=== PATIENT | male | born 1985 | race Caucasian/White ===

== ENCOUNTER 2018-11-03 11:32 | Emergency (ER) | payer SELFPAY ==
[~2018-11-03] VITALS: Ht 172.7 cm; Wt 77.1 kg
[2018-11-03] MEDS ORDERED: IV NORMAL SALINE 1000ML BAG 1,000 ML IV ONE ×2 (12:00→15:30)
[2018-11-03] MEDS ORDERED: NITROGLYCERIN SUBLINGUAL 0.4 MG BOTTLE OF 25. SL PRN (12:00)
[2018-11-03 12:11] LABS: BASO # 0.1 x10^3/uL (0.0-0.2); BASO % 1 % (0-3); EOS % 0 % (0-3); HEMOGLOBIN 12.7 g/dL (13.0-17.5); LYMPH # 2.2 x10^3/uL (1.0-4.8); LYMPH % 25 % (24-48); MEAN CORPUSCULAR HEMOGLOBIN 27 pg (25-35); MEAN CORPUSCULAR HGB CONC 34 g/dL (31-37); MEAN CORPUSCULAR VOLUME 81 fL (79-100); MONO # 0.7 x10^3/uL (0.0-1.1); MONO % 9 % (0-9); NEUT # 5.5 x10^3/uL (1.8-7.7); NEUT % 65 % (31-73); PLATELET COUNT 338 x10^3/uL (140-400); RED BLOOD COUNT 4.71 x10^6/uL (4.30-5.70); RED CELL DISTRIBUTION WIDTH 15.6 % (11.5-14.5); WHITE BLOOD COUNT 8.5 x10^3/uL (4.0-11.0)
[2018-11-03 12:19] LABS: CALCIUM 9.7 mg/dL (8.5-10.1); POTASSIUM 3.6 mmol/L (3.5-5.1)
[2018-11-03 12:24] LABS: PROTHROMBIN TIME PATIENT 12.1 SEC (11.7-14.0)
[2018-11-03 12:26] LABS: ALBUMIN 3.8 g/dL (3.4-5.0); ALBUMIN/GLOBULIN RATIO 1.1 (1.0-1.7); MAGNESIUM 1.7 mg/dL (1.8-2.4); TOTAL BILIRUBIN 0.2 mg/dL (0.2-1.0); TOTAL PROTEIN 7.4 g/dL (6.4-8.2)
--- NOTE | 2018-11-03 12:43 | EKG ---
[facility] [address] [place] [address] Test Date: 2018-11-03 Test Time: 11:36:51 Pat Name: CORINNE ADAMS Department: Room: Gender: M [employer]visor [employer]: : 1985 Requested By: ADAN JIANG Order Number: [id number] Reading MD: Measurements Intervals [place] Rate: 118 P: 66 IL: 168 QRS: 77 QRSD: 88 T: 42 QT: 306 QTc: 431 Interpretive Statements SINUS TACHYCARDIA OTHERWISE NORMAL ECG RI6.01 No previous ECG available for comparison
--- NOTE | 2018-11-03 12:48 | RAD ---
PORTABLE CHEST 1V History: Chest pain. Comparison: None. Findings: No consolidation or pleural effusion. Normal heart size. Postop changes proximal clavicle resection with surgical clips overlying the right mid chest. Impression: 1. No acute cardiopulmonary process. Electronically signed by: Omid Macias DO (11/03/2018 12:45 PM) [id number]
[2018-11-03 12:53] LABS: D-DIMER 0.51 ug/mlFEU (0.00-0.50)
[2018-11-03 13:35] LABS: AMPHETAMINE/METHAMPHETAMINE POS (NEG); BARBITURATES NEG (NEG); BENZODIAZEPINES NEG (NEG); CANNABINOIDS NEG (NEG); COCAINE NEG (NEG); METHADONE NEG (NEG); OPIATES NEG (NEG); PHENCYCLIDINE NEG (NEG)
--- NOTE | 2018-11-03 13:42 | PHYS DOC ---
Past Medical History Past Medical History: Anxiety, Other Additional Past Medical Histor: PE,ENDOCARDITIS,PANIC DISORDER Additional Past Surgical Histo: RIGHT SHOULDER,STERNUM R/T OSTEOMYLITIS Alcohol Use: Occasionally Drug Use: Methadone Adult General Chief Complaint Chief Complaint: CHEST PAIN HPI HPI Patient is a 33 year old male who presents to the ER via EMS with complaints of chest pain, dizziness, and near syncope for the last hour. He states he was outside painting when the sx started. Pt reports that he last used IV methamphetamine at 0400 this morning. He currently rates his pain a 7/10 on the pain scale, he denies any alleviating factors. Pt was given 324 mg of aspirin by EMS prior to arrival. Review of Systems Review of Systems Constitutional: Denies fever or chills [] Eyes: Denies change in visual acuity, redness, or eye pain [] HENT: Denies nasal congestion or sore throat [] Respiratory: Denies cough or shortness of breath [] Cardiovascular: No additional information not addressed in HPI [] GI: Denies abdominal pain, nausea, vomiting, or diarrhea [] : Denies dysuria or hematuria [] Musculoskeletal: Denies back pain or joint pain [] Integument: Denies rash or skin lesions; reports diaphoresis [] Neurologic: Denies headache or focal weakness; see HPI Endocrine: Denies polyuria or polydipsia [] Complete systems were reviewed and found to be within normal limits, except as documented in this note. Current Medications Current Medications Current Medications Medications (Trade) Dose Ordered Sig/Tanja Start Time Stop Time Status Last Admin Dose Admin Iohexol (Omnipaque 350 Mg/ml) 90 ml 1X ONCE 11/03/18 14:00 11/03/18 14:01 DC Lorazepam (Ativan Inj) 1 mg 1X ONCE 11/03/18 15:30 11/03/18 15:31 DC Nitroglycerin (Nitrostat) 0.4 mg PRN Q5MIN PRN 11/03/18 12:00 11/03/18 15:03 DC 11/03/18 12:15 0.4 MG Sodium Chloride 1,000 ml @ 1,000 mls/hr 1X ONCE 11/03/18 15:30 11/03/18 16:29 DC Allergies Allergies Allergies Coded Allergies Type Severity Reaction Last Updated Verified Sulfa (Sulfonamide Antibiotics) Allergy Unknown 11/03/18 Yes Physical Exam Physical Exam Constitutional: Well developed, well nourished, anxious, non-toxic appearance. [] HENT: Normocephalic, atraumatic, bilateral external ears normal, oropharynx moist, no oral exudates, nose normal. [] Eyes: PERRLA, EOMI, conjunctiva normal, no discharge. [] Neck: Normal range of motion, no tenderness, supple, no stridor. [] Cardiovascular:Heart rate regular tachycardic rhythm, no murmur [] Lungs & Thorax: Bilateral breath sounds clear to auscultation [] Abdomen: Bowel sounds normal, soft, no tenderness, no masses, no pulsatile masses. [] Skin: Warm, diaphoretic, no erythema, no rash. [] Back: No tenderness Extremities: No tenderness, no cyanosis, no clubbing, ROM intact, no edema. [] Neurologic: Alert and oriented X 3, no focal deficits noted. [] Psychologic: Affect normal, judgement normal, mood anxious Current Patient Data Vital Signs Vital Signs Date Time Temp Pulse Resp B/P (MAP) Pulse Ox O2 Delivery O2 Flow Rate FiO2 11/03/18 14:00 102 147/77 (100) 100 Room Air 11/03/18 11:40 98.4 22 98.4 Lab Values Laboratory Tests Test 11/03/18 12:00 11/03/18 13:15 White Blood Count 8.5 x10^3/uL (4.0-11.0) Red Blood Count 4.71 x10^6/uL (4.30-5.70) Hemoglobin 12.7 g/dL (13.0-17.5) L Hematocrit 38.0 % (39.0-53.0) L Mean Corpuscular Volume 81 fL (79-100) Mean Corpuscular Hemoglobin 27 pg (25-35) Mean Corpuscular Hemoglobin Concent 34 g/dL (31-37) Red Cell Distribution Width 15.6 % (11.5-14.5) H Platelet Count 338 x10^3/uL (140-400) Neutrophils (%) (Auto) 65 % (31-73) Lymphocytes (%) (Auto) 25 % (24-48) Monocytes (%) (Auto) 9 % (0-9) Eosinophils (%) (Auto) 0 % (0-3) Basophils (%) (Auto) 1 % (0-3) Neutrophils # (Auto) 5.5 x10^3/uL (1.8-7.7) Lymphocytes # (Auto) 2.2 x10^3/uL (1.0-4.8) Monocytes # (Auto) 0.7 x10^3/uL (0.0-1.1) Eosinophils # (Auto) 0.0 x10^3/uL (0.0-0.7) Basophils # (Auto) 0.1 x10^3/uL (0.0-0.2) Prothrombin Time 12.1 SEC (11.7-14.0) Prothrombin Time INR 0.9 (0.8-1.1) Activated Partial Thromboplast Time 23 SEC (24-38) L D-Dimer (Areli) 0.51 ug/mlFEU (0.00-0.50) H Sodium Level 136 mmol/L (136-145) Potassium Level 3.6 mmol/L (3.5-5.1) Chloride Level 99 mmol/L (98-107) Carbon Dioxide Level 23 mmol/L (21-32) Anion Gap 14 (6-14) Blood Urea Nitrogen 17 mg/dL (8-26) Creatinine 1.0 mg/dL (0.7-1.3) Estimated GFR (Cockcroft-Gault) 85.0 BUN/Creatinine Ratio 17 (6-20) Glucose Level 206 mg/dL (70-99) H Calcium Level 9.7 mg/dL (8.5-10.1) Magnesium Level 1.7 mg/dL (1.8-2.4) L Total Bilirubin 0.2 mg/dL (0.2-1.0) Aspartate Amino Transferase (AST) 14 U/L (15-37) L Alanine Aminotransferase (ALT) 25 U/L (16-63) Alkaline Phosphatase 119 U/L (46-116) H Creatine Kinase 94 U/L (39-308) Creatine Kinase MB (Mass) 1.4 ng/mL (0.0-3.6) Creatine Kinase MB Relative Index 1.5 % (0-4) Troponin I Quantitative < 0.017 ng/mL (0.000-0.055) Total Protein 7.4 g/dL (6.4-8.2) Albumin 3.8 g/dL (3.4-5.0) Albumin/Globulin Ratio 1.1 (1.0-1.7) Urine Opiates Screen Neg (NEG) Urine Methadone Screen Neg (NEG) Urine Barbiturates Neg (NEG) Urine Phencyclidine Screen Neg (NEG) Urine Amphetamine/Methamphetamine Pos (NEG) Urine Benzodiazepines Screen Neg (NEG) Urine Cocaine Screen Neg (NEG) Urine Cannabinoids Screen Neg (NEG) Urine Ethyl Alcohol Neg (NEG) Laboratory Tests 11/03/18 12:00 Laboratory Tests 11/03/18 12:00 EKG EKG 1136- Sinus tachycardia rate 118, otherwise normal, no STEMI read by Dr. Sewell[] Radiology/Procedures Radiology/Procedures PROCEDURE: PORTABLE CHEST 1V PORTABLE CHEST 1V History: Chest pain. Comparison: None. Findings: No consolidation or pleural effusion. Normal heart size. Postop changes proximal clavicle resection with surgical clips overlying the right mid chest. Impression: 1. No acute cardiopulmonary process.[] PROCEDURE: CT ANGIOGRAPHY CHEST CT ANGIOGRAPHY CHEST Indication: Chest pain, elevated d-dimer. . Technique: After intravenous contrast administration, CT imaging was performed of the chest. MIP reconstructions were obtained. Exposure: One or more of the following individualized dose reduction techniques were utilized for this examination: 1. Automated exposure control 2. Adjustment of the mA and/or kV according to patient size 3. Use of iterative reconstruction technique. Comparison: None FINDINGS: No evidence of pulmonary embolism. Curvilinear density along the wall of the ascending aorta is likely due to pulsatility artifact. No evidence of dissection in the transverse or descending aorta. Great vessel origins appear patent. No evidence of aortic aneurysm. Visualized thyroid is unremarkable. Small axillary lymph nodes are identified bilaterally, measuring up to 8 mm in short axis. No pathologic hilar or mediastinal lymph node enlargement is seen. Mild density within the anterior mediastinal fat is likely due to residual thymic tissue, or possibly mild thymic hyperplasia. No pericardial effusion. No evidence of pleural effusion. Small nodular density in the right upper lobe measures 5 mm, series 3, image 29. No evidence of consolidating infiltrate. The trachea and mainstem bronchi are patent. Vertebral body height and alignment are intact. No evidence of aggressive bone destruction. Scans to the upper abdomen are limited by technique but demonstrate no obvious acute finding. IMPRESSION: 1. No evidence of pulmonary embolism. 2. Small 5 mm pulmonary nodule in the right upper lobe. If patient is low risk, no follow-up is necessary as per revised Fleischner guidelines, but could consider follow-up chest CT in 12 months if patient is high risk. 3. Mild density within the anterior mediastinal fat, likely mild residual thymic tissue versus mild nonspecific thymic hyperplasia. Course & Med Decision Making Course & Med Decision Making Pertinent Labs and Imaging studies reviewed. (See chart for details) dx: chest pain, methamphetamine abuse CBC: Hgb 12.7, hct 38.0; PT/INR unremarkable, D-dimer 0.51; CMP alk phos 119, glucose 206, CK normal, troponin <0.017 CXR unremarkable CTA chest no acute findings Heart score 1- 2 risk factors T1DM and drug abuse, pt denies family hx of heart disease PT was given 1L ns, and 1 mg of Ativan IV. He reports feeling better after these medications. Pt states he plans to check into rehab tomorrow to stop using methamphetamine. Patient verbalized an understanding of home care, medications, follow-up, and return to ED instructions and was in agreement with the plan of care. [] Dragon Disclaimer Dragon Disclaimer This electronic medical record was generated, in whole or in part, using a voice recognition dictation system. Departure Departure Impression: Primary Impression: Chest pain of uncertain etiology Additional Impression: Drug abuse, amphetamine type Disposition: 01 HOME, SELF-CARE Condition: STABLE Referrals: NO PCP (PCP) Patient Instructions: Chest Pain (Nonspecific), [id number], Methamphetamine Abuse, Complications Additional Instructions: Stop using methamphetamine. Follow up with your primary care doctor. Return to the ER if symptoms worsen. The HEART Score for CP Pts HEART Score for Chest Pain: HEART Score for Chest Pain Response (Comments) Value History Slighlty/Non-Suspicious 0 ECG Normal 0 Age < 45 0 Risk Factors 1 or 2 Risk Factors 1 Troponin < Normal Limit 0 Total 1 Risk Factors: Risk Factors: DM, Current or recent (<one month) smoker, HTN, HLP, family history of CAD, obesity. Risk Scores: Score 0 - 3: 2.5% MACE over next 6 weeks - Discharge Home Score 4 - 6: 20.3% MACE over next 6 weeks - Admit for Clinical Observation Score 7 - 10: 72.7% MACE over next 6 weeks - Early Invasive Strategies Problem Qualifiers ADAN JIANG PIPE TURNER Nov 03, 2018 13:42
[2018-11-03 14:00] VITALS: BP 147/77
[2018-11-03] MEDS ORDERED: IOHEXOL 350 MG/ML 100 ML VIAL. IV ONE (14:00)
--- NOTE | 2018-11-03 14:31 | RAD ---
CT ANGIOGRAPHY CHEST Indication: Chest pain, elevated d-dimer. . Technique: After intravenous contrast administration, CT imaging was performed of the chest. MIP reconstructions were obtained. Exposure: One or more of the following individualized dose reduction techniques were utilized for this examination: 1. Automated exposure control 2. Adjustment of the mA and/or kV according to patient size 3. Use of iterative reconstruction technique. Comparison: None FINDINGS: No evidence of pulmonary embolism. Curvilinear density along the wall of the ascending aorta is likely due to pulsatility artifact. No evidence of dissection in the transverse or descending aorta. Great vessel origins appear patent. No evidence of aortic aneurysm. Visualized thyroid is unremarkable. Small axillary lymph nodes are identified bilaterally, measuring up to 8 mm in short axis. No pathologic hilar or mediastinal lymph node enlargement is seen. Mild density within the anterior mediastinal fat is likely due to residual thymic tissue, or possibly mild thymic hyperplasia. No pericardial effusion. No evidence of pleural effusion. Small nodular density in the right upper lobe measures 5 mm, series 3, image 29. No evidence of consolidating infiltrate. The trachea and mainstem bronchi are patent. Vertebral body height and alignment are intact. No evidence of aggressive bone destruction. Scans to the upper abdomen are limited by technique but demonstrate no obvious acute finding. IMPRESSION: 1. No evidence of pulmonary embolism. 2. Small 5 mm pulmonary nodule in the right upper lobe. If patient is low risk, no follow-up is necessary as per revised Fleischner guidelines, but could consider follow-up chest CT in 12 months if patient is high risk. 3. Mild density within the anterior mediastinal fat, likely mild residual thymic tissue versus mild nonspecific thymic hyperplasia. Electronically signed by: Lauro Spears MD (11/03/2018 2:28 PM) [id number]
== END 2018-11-03 15:03 | disposition home or self-care (01) ==
LOC: ER 11:32
DX: R07.89 Other chest pain (principal); R55 Syncope and collapse; F15.10 Other stimulant abuse, uncomplicated; R42 Dizziness and giddiness; F41.9 Anxiety disorder, unspecified; Z88.2 Allergy status to sulfonamides
CPT/HCPCS: 36415; 71045; 71275; 80053; 80307; 82553; 83735; 84484; 85025; 85379; 85610; 85730; 93005; 96361; 96374; 99285; J2060; J7030